=== PATIENT | female | born 1960 | race Caucasian/White ===

== ENCOUNTER 2021-07-31 13:19 | Emergency (ER) | payer MEDICAID, SELFPAY ==
[2021-07-31 13:35] VITALS: BP 126/64; PULSE 85; RESP 18; TEMP 36.4; O2SAT 100; BMI 26.2
[2021-07-31 14:00] LABS: Apearance,Urine Clear (Clear); Bilirubin,Urine Negative (Negative); Blood, Urine Trace (Negative); Color,Urine Yellow (Yellow); Glucose,Urine (UA) 1000 (Negative); Ketones,Urine Negative (Negative); Protein,Urine Negative (Negative); Specific Gravity, Urine 1.005 (1.005-1.030); UTC Influenza A Antigen Negative (Negative); UTC Leukocyte Esterase,Urine Negative (Negative); UTC Nitrate,Urine Negative (Negative); Urobilinogen,Urine 0.2 EU/dl (0.2)
[2021-07-31 14:01] LABS: UTC Influenza B Antigen Negative (Negative)
--- NOTE | 2021-07-31 14:06 | HMH.EDUTC ---
[facility] [place] Clinical Impression: Otitis media Qualifiers: Otitis media type: unspecified Laterality: right Qualified Code(s): H66.91 - Otitis media, unspecified, right ear Disposition: Home, Self-Care Condition on Discharge: Good Instructions: Middle Ear Infection Additional Instructions: *Monitor Temp, Over the counter Motrin or Tylenol as directed/as needed Tylenol every 4 hours and Motrin every 6 hours (as long as your family doctor has told you that you can take it) for fever or pain. and straight to ER if unable to lower temp less than 101.0 after medication given *Warm salt water gargles may help to soothe the throat *Throat Lozenges *Warm fluids like tea with honey may help to soothe the throat *Sleep elevated *Humidifier/Vaporizer Follow up IMMEDIATELY for new or worsening symptoms or no Noticeable improvement over the next 48-72 hours. 911 for difficulty breathing or swallowing Prescriptions: Amoxicillin [Amoxicillin 500mg Cap] 500 mg PO TID #30 cap Transmission Status: Pending to [facility] # Referrals: Yu Rodriguez PA [Primary Care Provider] - As needed Time of Disposition: 14:34 Medical Decision Making - Burak Inquiry Pt receiving controlled substance: No Burak was queried for this patient: No Vital Signs: 07/31/21 13:35 07/31/21 14:31 Temperature 97.6 F 97.6 F Temperature Source Oral Pulse Rate 85 Pulse Rate [Right Brachial] 85 Respiratory Rate 18 18 Blood Pressure 126/64 Blood Pressure [Right Arm] 126/64 Blood Pressure Mean [Right Arm] 84 Blood Pressure Source [Right Arm] Automatic Cuff Blood Pressure Position [Right Arm] Sitting 02 Sat by Pulse Oximetry 100 Oxygen Delivery Method Room Air - Lab Data Lab results reviewed: Yes: I reviewed the patient's lab results. Lab Results 07/31/21 13:42: Influenza Type A Ag Negative, Influenza Type B Ag Negative 07/31/21 13:42: Urine Color Yellow, Urine Appearance Clear, Urine pH 5.0, Ur Specific [place] 1.005, Urine Protein Negative, Urine Glucose (UA) 1000, Urine Ketones Negative, Urine Blood Trace, Urine Nitrate Negative, Urine Bilirubin Negative, Urine Urobilinogen 0.2, Ur Leukocyte Esterase Negative [facility] [place] - General Stated complaint: sore throat, ear pain Time Seen by Provider: 07/31/21 14:06 Mode of Arrival: Ambulatory Source of Information: Patient Limitations: No Limitations Description of Symptoms (Recalled from Triage Doc. by RN): PATIENT C/O BODY ACHES, EARS STOPPED UP, FATIGUE, AND FREQUENCY/BURNING WITH URINATION X 2 DAYS HEENT Symptoms (Recalled from RN notes): Yes Resp Symptoms (Recalled from RN notes): No Skin Symptoms (Recalled from RN notes): No MS Symptoms (Recalled from RN notes): No Functional Status (Recalled from RN notes): WNL - History of Present Illness Provider Complaint: Patient states that she has been caring for her grandchildren that has been sick and now she is has been having sore throat Bilateral ear pain and feeling of fullness and some burning with urination and feeling of urgency and frequency States that today she was still not feeling well so she came in - Related Data Previous Rx's Medication Instructions Recorded Amoxicillin [Amoxicillin 500mg 500 mg PO TID #30 cap 07/31/21 Cap] Allergies Allergy/AdvReac Type Severity Reaction Status Date / Time No Known Allergies Allergy Verified 07/31/21 13:54 - Worker's Comp Is this a Worker's Comp case?: No [facility] History - Hepatitis A Screen Drug use history?: No High risk sexual behaviors?: No History of sexually transmitted infection?: No Currently employed?: No Childcare worker?: No Do you have indoor plumbing?: Yes Do you have electricity?: Yes Attestation statement:: This patient has been screened for Hepatitis A risk factors. I have reviewed the patient's past medical history: Yes ROS Obtained: Yes All systems reviewed & no additional complaints, Yes Systems reviewed as
[2021-07-31 14:31] VITALS: BP 126/64; PULSE 85; RESP 18; TEMP 36.4; O2SAT 100
== END 2021-07-31 14:41 | disposition home or self-care (01) ==
PROVIDERS: Emergency Provider Nurse Practitioner; PCP Physician Assistant Medical
DX: H66.91 Otitis media, unspecified, right ear (principal)
CPT/HCPCS: 81003; 87804; 99203; G0463